=== PATIENT | female | born 1985 | race Caucasian/White ===

== ENCOUNTER 2018-07-27 12:11 | Emergency (ER) | payer BC ==
[2018-07-27 12:33] VITALS: RESP 18
[2018-07-27] MEDS ORDERED: ONDANSETRON ODT 4 MG TAB PO STA (12:45)
[2018-07-27] MEDS ORDERED: ACETAMINOPHEN TAB 500 MG TAB PO STA (12:45)
[2018-07-27] MEDS ORDERED: IBUPROFEN 800 MG TAB PO STA (12:45)
--- NOTE | 2018-07-27 12:57 | ED ---
Fever HPI - General Chief Complaint: Fever Stated Complaint: Flu Time Seen by Provider: 07/27/18 12:36 Source: patient, RN notes reviewed Mode of arrival: ambulatory Limitations: no limitations - History of Present Illness Initial Comments: This a 32-year-old female presents emergency Department chief complaint of fever cough congestion. Patient states she's been sick for last 4-5 days. Patient states she started feel better yesterday but felt worse today. Patient states that she went to urgent care and was referred here because he felt that she had walking pneumonia. Patient states that he did not want to give her Rocephin because she has an ALLERGY to amoxicillin. Patient was not given prescription for azithromycin. Patient states that she just feels miserable she points of diffuse body aches, arthralgias. Patient denies any vomiting diarrhea but admits to some nausea no dysuria no hematuria. - Related Data Previous Rx's Medication Instructions Recorded Azithromycin [Zithromax Z-pack] 0 mg PO DIRECTED #1 pack 07/27/18 Allergies Allergy/AdvReac Type Severity Reaction Status Date / Time amoxicillin Allergy Rash/Hives Verified 07/27/18 12:34 Sulfa (Sulfonamide Allergy Rash/Hives Verified 07/27/18 12:34 Antibiotics) sumatriptan [From Imitrex] Allergy Anaphylaxis Verified 07/27/18 12:34 Review of Systems ROS Statement: Those systems with pertinent positive or pertinent negative responses have been documented in the HPI. ROS Other: All systems not noted in ROS Statement are negative. Past Medical History Past Medical History: No Reported History History of Any Multi-Drug Resistant Organisms: None Reported Past Surgical History: No Surgical Hx Reported Past Psychological History: No Psychological Hx Reported Smoking Status: Never smoker Past Alcohol Use History: Occasional Past Drug Use History: None Reported General Exam Limitations: no limitations General appearance: alert, in no apparent distress Head exam: Present: atraumatic, normocephalic, normal inspection Eye exam: Present: normal appearance, PERRL, EOMI. Absent: scleral icterus, conjunctival injection, periorbital swelling ENT exam: Present: normal exam, normal oropharynx, mucous membranes moist, TM's normal bilaterally, normal external ear exam Neck exam: Present: normal inspection, full ROM. Absent: tenderness, meningismus, lymphadenopathy Respiratory exam: Present: normal lung sounds bilaterally. Absent: respiratory distress, wheezes, rales, rhonchi, stridor Cardiovascular Exam: Present: normal rhythm, tachycardia, normal heart sounds. Absent: systolic murmur, diastolic murmur, rubs, gallop, clicks Neurological exam: Present: alert, oriented X3, CN II-XII intact Skin exam: Present: warm, dry, intact, normal color. Absent: rash Course Vital Signs 07/27/18 12:31 Temperature 103 F H Pulse Rate 102 H Respiratory 18 Rate Blood Pressure 114/70 O2 Sat by Pulse 98 Oximetry Medical Decision Making - Medical Decision Making 32-year-old female presented emergency department with chief complaint of fever cough congestion. Patient has evidence of right middle lung pneumonia. Patient was given Rocephin emergency department and discharge on azithromycin. We did discuss fever control. Return parameters were discussed. - Lab Data Lab Results 07/27/18 Range/Units 12:50 Influenza Type A RNA Not Detected (Not Detectd) Influenza Type B (PCR) Not Detected (Not Detectd) Disposition Clinical Impression: Community acquired pneumonia of right middle lobe of lung Disposition: HOME SELF-CARE Condition: Stable Instructions (If sedation given, give patient instructions): Bacterial Pneumonia (ED) Additional Instructions: Please return to the Emergency Department if symptoms worsen or any other concerns. Prescriptions: Azithromycin [Zithromax Z-pack] 0 mg PO DIRECTED #1 pack Is patient prescribed a controlled substance at d/c from ED?: No Referrals: Nerissa Judd MD [Primary Care Provider] - 1-2 days Time of Disposition: 13:35
--- NOTE | 2018-07-27 13:11 | XR ---
EXAMINATION TYPE: XR chest 2V DATE OF EXAM: 07/27/2018 COMPARISON: NONE HISTORY: Chest pain TECHNIQUE: Frontal and lateral views of the chest are obtained. FINDINGS: Right middle lobe infiltrate noted. Correlate for pneumonia. No evidence for pneumothorax. No pleural effusion. The cardiac silhouette size is within normal limits. The osseous structures are grossly intact. IMPRESSION: 1. Right middle lobe infiltrate noted. Correlate for pneumonia.
[2018-07-27] MEDS ORDERED: cefTRIAXone 1,000 MG VIAL (IM USE) IM STA (13:19)
[2018-07-27 14:12] VITALS: BP 105/60; PULSE 83; TEMP 99.2
== END 2018-07-27 14:45 | disposition home or self-care (01) ==
LOC: EC 12:11
DX: J18.1 Lobar pneumonia, unspecified organism (principal); Z88.0 Allergy status to penicillin; Z88.2 Allergy status to sulfonamides; Z88.8 Allergy status to other drugs, medicaments and biological substances
CPT/HCPCS: 87502; 71046; 99283; 96372; J0696